=== PATIENT | female | born 1925 | race Caucasian/White ===

== ENCOUNTER 2016-11-23 14:47 | Emergency (ER) | payer MEDICARE ==
[2016-11-23 14:33] LABS: BUN (BLOOD UREA NITROGEN) 22 MG/DL (6-23); CALCIUM, SERUM 9.1 MG/DL (8.5-10.4); CHLORIDE, SERUM 105 MMOL/L (96-112); CO2 (CARBON DIOXIDE) 27 MMOL/L (24-34); CREATININE 1.05 MG/DL (0.55-1.02); GFR AFRICAN AMERICAN 55 ML/MIN (>=60); GFR NON AFRICAN AMERICAN 47 ML/MIN (>=60); GLUCOSE, SERUM 85 MG/DL (60-99); SODIUM, SERUM 141 MMOL/L (135-148)
[2016-11-23 14:34] LABS: POTASSIUM, SERUM 4.7 MMOL/L (3.5-5.3)
[2016-11-23 14:52] LABS: SED RATE 82 MM/HR (0-20)
[2016-11-23 15:46] LABS: BASOPHILS 0.2 %; BASOPHILS ABSOLUTE 0.02 10/3/uL (0.0-0.16); EOSINOPHILS 0.7 %; EOSINOPHILS ABSOLUTE 0.08 10/3/uL (0.0-0.53); HEMATOCRIT 42.5 % (36.0-48.0); HEMOGLOBIN 14.2 g/dL (12.0-16.0); IMMATURE GRANULOCYTES 0.3 %; IMMATURE GRANULOCYTES ABSOLUTE 0.04 10/3/uL (0.0-0.11); LYMPHOCYTES ABSOLUTE 1.32 10/3/uL (0.67-4.30); MEAN CORPUS HGB CONC 33.4 g/dL (32.0-36.0); MEAN CORPUSCULAR HEMOGLOB 31.5 pg (26.0-34.0); MEAN CORPUSCULAR VOLUME 94.2 fL (80-100); MEAN PLATELET VOLUME 10.9 fL (9.2-13.0); MONOCYTES 12.5 %; NEUTROPHILS 75.3 %; NEUTROPHILS ABSOLUTE 9.03 10/3/uL (2.02-8.40); PLATELET COUNT 361 10/3/uL (150-400); RED CELL COUNT 4.51 10/6/uL (4.0-5.6)
[2016-11-23 15:47] LABS: ER CBC TAT 1 Hrs 32 Mins; MANUAL DIFF NO %
== END 2016-11-23 17:32 | disposition home or self-care (01) ==
LOC: ER 14:47
PROVIDERS: Nurse Practitioner
DX: M25.562 Pain in left knee (principal); M25.462 Effusion, left knee; I10 Essential (primary) hypertension; Z87.891 Personal history of nicotine dependence; Z88.5 Allergy status to narcotic agent; Z88.6 Allergy status to analgesic agent
CPT/HCPCS: 73560-LT; 80048; 85025; 85652; 87040; 99284